=== PATIENT | female | born 1940 | race Caucasian/White ===

== ENCOUNTER 2017-01-07 16:42 | Emergency (ER) | payer MEDICARE, BC ==
[~2017-01-07] VITALS: Ht 162.6 cm; Wt 77.3 kg
[~2017-01-07 16:42] MED LIST: EZET10TA13 PO; LISI-603 PO
[2017-01-07] MEDS ORDERED: LORAZEPAM 0.5 MG TABLET PO ONE (17:15)
[2017-01-07] MEDS ORDERED: LIDOCAINE HCL 1% 20 ML VIAL IJ ONE (17:15)
[2017-01-07] MEDS ORDERED: LORAZEPAM 0.5 MG TABLET ONE (17:28)
--- NOTE | 2017-01-07 17:52 | NUR ---
Patient discharged to home in stable conditon. Written and verbal after care instructions given to patient and family. Patient and family verbalized understanding of instructions.
== END 2017-01-07 17:54 | disposition home or self-care (01) ==
LOC: ER 16:45
DX: S01.312A Laceration without foreign body of left ear, initial encounter (principal); S09.90XA Unspecified injury of head, initial encounter; I10 Essential (primary) hypertension; E78.5 Hyperlipidemia, unspecified; E03.9 Hypothyroidism, unspecified; D64.9 Anemia, unspecified; B19.20 Unspecified viral hepatitis C without hepatic coma; Z86.73 Personal history of transient ischemic attack (TIA), and cerebral infarction without residual deficits; Z88.0 Allergy status to penicillin; Z85.820 Personal history of malignant melanoma of skin; W22.8XXA Striking against or struck by other objects, initial encounter; Y93.89 Activity, other specified; Y92.89 Other specified places as the place of occurrence of the external cause; Y99.8 Other external cause status
CPT/HCPCS: 12015; 99283; A4217; A4663; J3490

== ENCOUNTER 2017-11-22 18:05 | Emergency (ER) | payer MEDICARE, BC ==
[~2017-11-22] VITALS: Ht 162.6 cm; Wt 74.4 kg
[2017-11-22] MEDS ORDERED: NORVASC (18:20)
--- NOTE | 2017-11-22 19:37 | NUR ---
Pt awake, alert, oriented x3. Pt and family are very upset regarding waiting for provider. Bleeding to occipital head controlled. No sob noted. NO s/sx of distress noted. Resp even and unlabored. Reassured and comforted. Made MD aware. MD is currently at bedside, talking to patient and family.
[2017-11-22] MEDS ORDERED: NEOMY/BACITRA/POLYMYXIN B OINT UD PACKET TP ONE ×3 (19:45→20:23)
--- NOTE | 2017-11-22 20:10 | NUR ---
Pt is currently in CT scan. Plan of care discussed with son.
--- NOTE | 2017-11-22 20:42 | NUR ---
Patient and son discharged to home in stable conditon. Written and verbal after care instructions given. Patient and son verbalizes understanding of instructions.
[2017-11-22 20:43] VITALS: BP 97/60
== END 2017-11-22 20:46 | disposition home or self-care (01) ==
LOC: ER 18:09
DX: S01.01XA Laceration without foreign body of scalp, initial encounter (principal); S00.03XA Contusion of scalp, initial encounter; J40 Bronchitis, not specified as acute or chronic; I10 Essential (primary) hypertension; E78.5 Hyperlipidemia, unspecified; F17.200 Nicotine dependence, unspecified, uncomplicated; E03.9 Hypothyroidism, unspecified; Z88.0 Allergy status to penicillin; Z86.73 Personal history of transient ischemic attack (TIA), and cerebral infarction without residual deficits; W01.10XA Fall on same level from slipping, tripping and stumbling with subsequent striking against unspecified object, initial encounter; Y93.89 Activity, other specified; Y92.89 Other specified places as the place of occurrence of the external cause; Y99.8 Other external cause status
CPT/HCPCS: 70450; 99284; A4217; A4663

== ENCOUNTER 2018-01-18 19:26 | Emergency (ER) | payer BC, MEDICARE ==
[~2018-01-18] VITALS: Ht 162.6 cm; Wt 74.8 kg
[~2018-01-18 19:26] MED LIST changes: -EZET10TA13 PO; -LISI-603 PO; +NORVASC
[2018-01-18 19:56] LABS: BASOPHILS # (AUTO) 0.1 K/uL (0.0-8.0); BASOPHILS % (AUTO) 0.9 % (0.0-2.0); EOSINOPHILS # (AUTO) 0.1 K/uL (0.0-0.7); EOSINOPHILS % (AUTO) 1.3 % (0.0-7.0); HEMATOCRIT 36.8 % (31.2-41.9); HEMOGLOBIN 12.5 g/dL (10.9-14.3); LYMPHOCYTES # (AUTO) 1.4 K/uL (20.0-40.0); MEAN CORPUSCULAR HEMOGLOBIN 31.5 uug (24.7-32.8); MEAN CORPUSCULAR HGB CONC 34 g/dL (32.3-35.6); MEAN CORPUSCULAR VOLUME 92.8 fL (75.5-95.3); MONOCYTES % (AUTO) 13.8 % (0.0-11.0); NEUTROPHILS # (AUTO) 4.5 K/uL (1.8-8.9); PLATELET COUNT (AUTO) 165 K/uL (179-408); RED BLOOD CELL COUNT(AUTO) 3.97 MIL/uL (3.63-4.92); WHITE BLOOD COUNT (AUTO) 7.1 K/uL (3.8-11.8)
[2018-01-18 20:04] LABS: CARBON DIOXIDE 24 mmol/L (21-32); CHLORIDE 104 mmol/L (98-107); CREATININE 0.9 mg/dL (0.6-1.3); GLUCOSE 117 mg/dL (74-106); POTASSIUM 3.4 mmol/L (3.5-5.1); UREA NITROGEN, BLOOD 17 mg/dL (7-18)
[2018-01-18 20:09] LABS: ALANINE AMINOTRANSFERASE 25 U/L (14-59); ALKALINE PHOSPHATASE 63 U/L (50-136); ASPARTATE AMINOTRANSFERASE 22 U/L (15-37); BILIRUBIN,DIRECT 0.2 mg/dL (0.0-0.2); BILIRUBIN,TOTAL 0.6 mg/dL (0.2-1.0); TOTAL PROTEIN, SERUM 6.9 g/dL (6.4-8.2)
--- NOTE | 2018-01-18 20:12 | NUR ---
Pt. ambulated into ED w/ laceration to R forearm, denies pain, sensation and peripheral pulse intact, reports she had "been drinking and fell while decorating this Mary tree",
--- NOTE | 2018-01-18 20:14 | NUR ---
apprentice technician in room for CXR,
--- NOTE | 2018-01-18 21:15 | NUR ---
Patient discharged to home in stable conditon. Written and verbal after care instructions given. Patient verbalizes understanding of instructions. Pt. d/c per MD orders, instructed not to drive, left w/ daughter in private vehicle, IV and ID band removed, no acute distress,
[2018-01-18 21:16] VITALS: BP 133/89
== END 2018-01-18 21:17 | disposition home or self-care (01) ==
LOC: ER 19:29
DX: S51.811A Laceration without foreign body of right forearm, initial encounter (principal); F10.129 Alcohol abuse with intoxication, unspecified; E03.8 Other specified hypothyroidism; Z88.0 Allergy status to penicillin; Z86.2 Personal history of diseases of the blood and blood-forming organs and certain disorders involving the immune mechanism; W01.198A Fall on same level from slipping, tripping and stumbling with subsequent striking against other object, initial encounter; Y93.89 Activity, other specified; Y92.89 Other specified places as the place of occurrence of the external cause; Y99.8 Other external cause status
CPT/HCPCS: 12002; 36415; 71045; 80048; 80076; 84484; 85025; 93005; 99284; G0480; J3490; 70030-TC; A4663

== ENCOUNTER 2018-09-02 17:46 | Emergency (ER) | payer BC, MEDICARE ==
[~2018-09-02] VITALS: Ht 165.1 cm; Wt 74.8 kg
--- NOTE | 2018-09-02 17:50 | NUR ---
PT IS IN ROOM #1A. DR HENAO EVALUATED THE PT.
[2018-09-02] MEDS ORDERED: IV NORMAL SALINE 1000 ML BAG IV ONE ×2 (18:00→19:00)
[2018-09-02 18:09] LABS: BASOPHILS # (AUTO) 0.1 K/uL (0.0-8.0); BASOPHILS % (AUTO) 0.7 % (0.0-2.0); EOSINOPHILS # (AUTO) 0.2 K/uL (0.0-0.7); EOSINOPHILS % (AUTO) 2.3 % (0.0-7.0); HEMATOCRIT 38.1 % (31.2-41.9); HEMOGLOBIN 12.6 g/dL (10.9-14.3); LYMPHOCYTES # (AUTO) 2.2 K/uL (20.0-40.0); LYMPHOCYTES % (AUTO) 22.2 % (20.5-51.5); MEAN CORPUSCULAR HEMOGLOBIN 30.4 uug (24.7-32.8); MEAN CORPUSCULAR HGB CONC 33 g/dL (32.3-35.6); MEAN CORPUSCULAR VOLUME 91.8 fL (75.5-95.3); MONOCYTES # (AUTO) 0.9 K/uL (2.0-10.0); MONOCYTES % (AUTO) 8.9 % (0.0-11.0); NEUTROPHILS # (AUTO) 6.6 K/uL (1.8-8.9); NEUTROPHILS % (AUTO) 65.9 % (38.5-71.5); PLATELET COUNT (AUTO) 203 K/uL (179-408); RED BLOOD CELL COUNT(AUTO) 4.15 MIL/uL (3.63-4.92); WHITE BLOOD COUNT (AUTO) 9.9 K/uL (3.8-11.8)
[2018-09-02 18:14] LABS: CARBON DIOXIDE 22 mmol/L (21-32); CHLORIDE 107 mmol/L (98-107); CREATININE 1.6 mg/dL (0.6-1.3); GLUCOSE 124 mg/dL (74-106); POTASSIUM 3.8 mmol/L (3.5-5.1); UREA NITROGEN, BLOOD 22 mg/dL (7-18)
[2018-09-02] MEDS ORDERED: OLME20TA13 PO (18:18)
[2018-09-02] MEDS ORDERED: SIMV20TA6 PO (18:18)
[2018-09-02] MEDS ORDERED: ESCI10TA PO (18:18)
[2018-09-02] MEDS ORDERED: ANAS1TAB8 PO (18:18)
[2018-09-02] MEDS ORDERED: AMLO5TAB9 PO (18:18)
[2018-09-02 18:22] LABS: ETHANOL 259 MG/DL (0-0)
[2018-09-02 18:26] LABS: ALANINE AMINOTRANSFERASE 20 U/L (14-59); ALKALINE PHOSPHATASE 75 U/L (50-136); ASPARTATE AMINOTRANSFERASE 20 U/L (15-37); BILIRUBIN,DIRECT 0.1 mg/dL (0.0-0.2); BILIRUBIN,TOTAL 0.5 mg/dL (0.2-1.0); TOTAL PROTEIN, SERUM 7.4 g/dL (6.4-8.2)
--- NOTE | 2018-09-02 19:02 | NUR ---
REPORT GIVEN TO TEXTILE WORKER RN.
--- NOTE | 2018-09-02 20:04 | NUR ---
Patient discharged to home in stable conditon. Written and verbal after care instructions given. Patient verbalizes understanding of instructions. Pt ambulated out of ER in stable gait, accompanied by granddaughter, who will drive pt home. No acute distress noted. Vital signs stable. Respirations even + unlabored. All belongings with patient.
[2018-09-02 20:07] VITALS: BP 125/72
== END 2018-09-02 20:07 | disposition home or self-care (01) ==
LOC: ER 17:47
DX: F10.129 Alcohol abuse with intoxication, unspecified (principal); E78.5 Hyperlipidemia, unspecified; E03.9 Hypothyroidism, unspecified; F32.9 Major depressive disorder, single episode, unspecified; Z88.0 Allergy status to penicillin; Z86.73 Personal history of transient ischemic attack (TIA), and cerebral infarction without residual deficits; Z79.899 Other long term (current) drug therapy; Y90.8 Blood alcohol level of 240 mg/100 ml or more
CPT/HCPCS: 36415; 70450; 71045; 80048; 80076; 84484; 85025; 93005; 99284; G0480; 70030-TC; A4663; J7030

== ENCOUNTER 2018-12-06 18:12 | Emergency (ER) | payer BC ==
[~2018-12-06] VITALS: Ht 165.1 cm; Wt 74.8 kg
[~2018-12-06 18:12] MED LIST changes: +AMLO5TAB9 PO; +ANAS1TAB8 PO; +ESCI10TA PO; -NORVASC; +OLME20TA13 PO; +SIMV20TA6 PO
--- NOTE | 2018-12-06 18:38 | NUR ---
Patient normally walks with walker or cane because of chronic pains from her back issues, MD notified.
--- NOTE | 2018-12-06 18:39 | NUR ---
Patient walked from ER bed 4B to ER hallway using walker. No gross ataxia seen.
--- NOTE | 2018-12-06 18:55 | NUR ---
Patient was able to walk from room 4B to nursing station unassisted. Patient says her seema is coming to pick her up & give her a ride home. Patient is for discharged to home. Written and verbal after care instructions given to patient. Patient verbalizes understanding of instructions. Patient will sit & wait in the ER hallway for her ride, endorsed to night relief charge nurse Albert accordingly.
--- NOTE | 2018-12-06 19:24 | NUR ---
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 Patient discharged to home in stable conditon. Written and verbal after care instructions given. Patient verbalizes understanding of instructions. Patient out of ER with steady gait, accompanied by daughter, VSS, all belongings taken, to be driven home by daughter via private vehicle.
[2018-12-06 19:26] VITALS: BP 113/70
== END 2018-12-06 19:26 | disposition home or self-care (01) ==
LOC: ER 18:15
DX: F10.129 Alcohol abuse with intoxication, unspecified (principal); E78.5 Hyperlipidemia, unspecified; F32.9 Major depressive disorder, single episode, unspecified; E03.9 Hypothyroidism, unspecified; Z88.0 Allergy status to penicillin; Z79.899 Other long term (current) drug therapy; W18.39XA Other fall on same level, initial encounter; Y93.89 Activity, other specified; Y92.89 Other specified places as the place of occurrence of the external cause; Y99.8 Other external cause status; Y90.9 Presence of alcohol in blood, level not specified
CPT/HCPCS: A4663

== ENCOUNTER 2019-01-20 14:58 | Emergency (ER) | payer BC ==
[~2019-01-20] VITALS: Ht 162.6 cm; Wt 72.6 kg
[~2019-01-20 14:58] MED LIST changes: +SIMV-46 PO; -SIMV20TA6 PO
[2019-01-20 15:38] VITALS: BP 110/72
== END 2019-01-20 15:38 | disposition home or self-care (01) ==
LOC: ER 15:00
DX: J20.9 Acute bronchitis, unspecified (principal); E78.5 Hyperlipidemia, unspecified; F32.9 Major depressive disorder, single episode, unspecified; E03.9 Hypothyroidism, unspecified; Z88.0 Allergy status to penicillin; Z79.899 Other long term (current) drug therapy
CPT/HCPCS: A4663

== ENCOUNTER 2019-04-17 20:16 | Emergency (ER) | payer BC ==
[~2019-04-17] VITALS: Ht 167.6 cm; Wt 74.4 kg
[2019-04-17 20:55] LABS: BASOPHILS % (AUTO) 0.6 % (0.0-2.0); EOSINOPHILS # (AUTO) 0.1 K/uL (0.0-0.7); EOSINOPHILS % (AUTO) 1.1 % (0.0-7.0); HEMATOCRIT 35.5 % (31.2-41.9); LYMPHOCYTES # (AUTO) 1.8 K/uL (20.0-40.0); LYMPHOCYTES % (AUTO) 26.4 % (20.5-51.5); MEAN CORPUSCULAR HGB CONC 34 g/dL (32.3-35.6); MEAN CORPUSCULAR VOLUME 91.8 fL (75.5-95.3); MONOCYTES # (AUTO) 0.8 K/uL (2.0-10.0); NEUTROPHILS # (AUTO) 4.2 K/uL (1.8-8.9); NEUTROPHILS % (AUTO) 60.9 % (38.5-71.5); PLATELET COUNT (AUTO) 196 K/uL (179-408); RED BLOOD CELL COUNT(AUTO) 3.86 MIL/uL (3.63-4.92); WHITE BLOOD COUNT (AUTO) 6.9 K/uL (3.8-11.8)
[2019-04-17 21:01] LABS: CARBON DIOXIDE 26 mmol/L (21-32); CHLORIDE 105 mmol/L (98-107); CREATININE 1.6 mg/dL (0.6-1.3); GLUCOSE 107 mg/dL (74-106); POTASSIUM 4.1 mmol/L (3.5-5.1); UREA NITROGEN, BLOOD 27 mg/dL (7-18)
[2019-04-17 21:07] LABS: ALANINE AMINOTRANSFERASE 24 U/L (14-59); ALKALINE PHOSPHATASE 86 U/L (50-136); ASPARTATE AMINOTRANSFERASE 18 U/L (15-37); BILIRUBIN,DIRECT < 0.1 mg/dL (0.0-0.2); BILIRUBIN,TOTAL 0.3 mg/dL (0.2-1.0); CREATINE KINASE, TOTAL 42 U/L (26-192); TOTAL PROTEIN, SERUM 6.9 g/dL (6.4-8.2)
--- NOTE | 2019-04-17 21:31 | NUR ---
pt taken to ct via [facility] w/ transporter.
--- NOTE | 2019-04-17 21:48 | NUR ---
PT BACK FROM CT.
--- NOTE | 2019-04-17 22:43 | NUR ---
GRANDDAUGHTER AT BEDSIDE, STATES SHE IS WILLING TO TAKE CARE OF THE PATIENT AND SPEND THE NIGHT AT HER HOUSE TO MAKE SURE SHE IS SAFE. ER MD IS AWARE OF THIS.
--- NOTE | 2019-04-17 22:50 | NUR ---
ERENDIRA REYES AT BEDSIDE FOR PATIENT UPDATE.
--- NOTE | 2019-04-17 23:30 | NUR ---
Patient discharged to home in stable conditon. Written and verbal after care instructions given. Patient verbalizes understanding of instructions. Ambualted from ER with stable gait. Patient will be driven home by granddaughter in private vehicle.
[2019-04-17 23:32] VITALS: BP 137/80
== END 2019-04-17 23:32 | disposition home or self-care (01) ==
LOC: ER 20:18
DX: F10.129 Alcohol abuse with intoxication, unspecified (principal); N18.9 Chronic kidney disease, unspecified; E03.9 Hypothyroidism, unspecified; E78.5 Hyperlipidemia, unspecified; F32.9 Major depressive disorder, single episode, unspecified; Z60.2 Problems related to living alone; Z88.0 Allergy status to penicillin; Z79.899 Other long term (current) drug therapy; W18.30XA Fall on same level, unspecified, initial encounter; Y90.9 Presence of alcohol in blood, level not specified; Y93.G3 Activity, cooking and baking; Y92.000 Kitchen of unspecified non-institutional (private) residence as the place of occurrence of the external cause; Y99.8 Other external cause status
CPT/HCPCS: 36415; 70450; 72125; 80048; 80076; 82550; 85025; 93005; 99285; G0480; A4663

== ENCOUNTER 2022-04-08 14:26 | Emergency (ER) | payer BC, MEDICARE ==
[~2022-04-08] VITALS: Ht 157.5 cm; Wt 54.4 kg
[~2022-04-08 14:26] MED LIST changes: +AMLO-212 PO; -AMLO5TAB9 PO
[2022-04-08] MEDS ORDERED: TDAP DIPH,PERTUSS,TET VAC/PF 0.5 ML DISP.SYRIN IM ONE ×2 (15:30→15:32)
--- NOTE | 2022-04-08 15:50 | NUR ---
PT WAS EVALUATED BY DR TOBIN. PT WAS D/C'D TO HOME. D/C INSTRUCTIONS GIVEN TO THE PT BY DR TOBIN.
[2022-04-08 15:51] VITALS: BP 134/76
== END 2022-04-08 15:54 | disposition home or self-care (01) ==
LOC: ER 14:30
DX: S61.210A Laceration without foreign body of right index finger without damage to nail, initial encounter (principal); W27.8XXA Contact with other nonpowered hand tool, initial encounter; Y92.89 Other specified places as the place of occurrence of the external cause; Z86.73 Personal history of transient ischemic attack (TIA), and cerebral infarction without residual deficits; Z79.01 Long term (current) use of anticoagulants; Z85.3 Personal history of malignant neoplasm of breast; Z90.11 Acquired absence of right breast and nipple; E03.9 Hypothyroidism, unspecified; E78.5 Hyperlipidemia, unspecified; Z86.19 Personal history of other infectious and parasitic diseases; Z79.899 Other long term (current) drug therapy
CPT/HCPCS: 90715; A4663

== ENCOUNTER 2022-09-13 21:23 | Emergency (ER) | payer BC ==
[~2022-09-13] VITALS: Ht 157.5 cm; Wt 54.4 kg
--- NOTE | 2022-09-13 21:23 | NUR ---
PT BIBA FOR GL FALL. PT TAKEN TO RM 5, PLACED ON MONITOR.
--- NOTE | 2022-09-13 21:30 | NUR ---
AT BEDSIDE FOR EVAL.
[2022-09-13] MEDS ORDERED: BACITRACIN ZINC OINT 15 GM TUBE TOP ONE (21:45)
--- NOTE | 2022-09-13 21:45 | NUR ---
HAIDER LOWER AND UPPER EXT SKIN TEARS IRRIGATED , BACITRACIN APPLIED AND BANDAIDS APPLIED. PT NATHALIE WELL WITH NO C/O PAIN.
[2022-09-13] MEDS ORDERED: BACITRACIN ZINC OINT 15 GM TUBE ONE (22:03)
--- NOTE | 2022-09-13 22:25 | NUR ---
Patient discharged to home in stable condition. Written and verbal after care instructions given. Patient verbalizes understanding of instructions. Stressed follow up or return to ER for worsening s/s. PT A, A AND O X 4, WITH NO C/O PAIN AND NAD OBSERVED, PT TAKEN TO CAR VIA W/C.
[2022-09-13 22:39] VITALS: BP 161/79; TEMP 97.9; O2SAT 98
== END 2022-09-13 22:25 | disposition home or self-care (01) ==
LOC: ER 21:23
DX: S51.012A Laceration without foreign body of left elbow, initial encounter (principal); S51.011A Laceration without foreign body of right elbow, initial encounter; S81.812A Laceration without foreign body, left lower leg, initial encounter; E78.5 Hyperlipidemia, unspecified; C79.51 Secondary malignant neoplasm of bone; E03.9 Hypothyroidism, unspecified; I10 Essential (primary) hypertension; Z86.2 Personal history of diseases of the blood and blood-forming organs and certain disorders involving the immune mechanism; Z86.73 Personal history of transient ischemic attack (TIA), and cerebral infarction without residual deficits; Z79.899 Other long term (current) drug therapy; W01.0XXA Fall on same level from slipping, tripping and stumbling without subsequent striking against object, initial encounter; Y93.89 Activity, other specified; Y92.89 Other specified places as the place of occurrence of the external cause; Y99.8 Other external cause status
CPT/HCPCS: A4663

== ENCOUNTER 2023-03-01 15:49 | Emergency (ER) | payer BC ==
[~2023-03-01] VITALS: Ht 157.5 cm; Wt 54.4 kg
[2023-03-01 16:20] VITALS: O2SAT 96
== END 2023-03-01 19:00 | disposition home or self-care (01) ==
LOC: ER 15:52
DX: S80.212A Abrasion, left knee, initial encounter (principal); E78.5 Hyperlipidemia, unspecified; J40 Bronchitis, not specified as acute or chronic; F32.A Depression, unspecified; F41.9 Anxiety disorder, unspecified; Z79.899 Other long term (current) drug therapy; Z88.0 Allergy status to penicillin; W18.39XA Other fall on same level, initial encounter; Y93.89 Activity, other specified; Y92.89 Other specified places as the place of occurrence of the external cause; Y99.8 Other external cause status
CPT/HCPCS: A4606; A4663